=== PATIENT | male | born 1995 | race Caucasian/White ===

== ENCOUNTER 2019-06-15 02:42 | Emergency (ER) | payer OTHER ==
[~2019-06-15] VITALS: Ht 193 cm; Wt 83.9 kg
[2019-06-15 03:34] VITALS: BP 134/90
== END 2019-06-15 03:35 | disposition home or self-care (01) ==
LOC: M.ERS 02:42
DX: F15.10 Other stimulant abuse, uncomplicated (principal); F90.9 Attention-deficit hyperactivity disorder, unspecified type; F17.210 Nicotine dependence, cigarettes, uncomplicated